=== PATIENT | male | born 1945 | race Two or more races ===

== ENCOUNTER 2020-04-14 09:59 | Outpatient (CLI) | payer MEDICARE ==
[2020-04-17] MEDS ORDERED: OXYC-454 PO (08:00)
== END 2020-04-14 23:59 | disposition home or self-care (01) ==
LOC: LAB 09:59
PROVIDERS: ATTEND Specialist
DX: Z01.812 Encounter for preprocedural laboratory examination (principal); Z11.59 Encounter for screening for other viral diseases
CPT/HCPCS: C9803; U0003

== ENCOUNTER 2020-04-17 05:09 | Inpatient (IN) | payer MEDICARE ==
[~2020-04-17] VITALS: Ht 180.3 cm; Wt 83.9 kg
[2020-04-17 05:20] VITALS: BP 139/91
--- NOTE | 2020-04-17 05:21 | NUR ---
MS RN NOTES PATIENT ARRIVED ON FLOOR AT 0520. PATIENT IS ALERT AND ORIENTED X 4. BREATHING EVEN AND UNLABORED ON ROOM AIR. SHOWS NO SIGNS OF ACUTE RESPIRATORY DISTRESS, NO ACUTE PAIN. IV ON L FOREARM 20G ITS CLEAN DRY AND INTACT. SHOWS NO SIGNS OF INFILTRATION, NO REDNESS. BELONGINGS CHECKLIST COMPLETED, CONSENT SIGNED FOR SURGERY. MRSA SWAB COMPLETED. BED IN LOWEST POSITION, LOCKED, AND CALL LIGHT KEPT WITHIN REACH.
[2020-04-17] MEDS ORDERED: ANESTHESIA TRAY IN PYXIS 1 EA TRAY MC ONE (05:50)
[2020-04-17] MEDS ORDERED: BUPIVACAINE 0.5 % PF 150 MG/30 ML VIAL ONE (05:50)
--- NOTE | 2020-04-17 06:10 | NUR ---
MS RN NOTES PATIENT LEFT FLOOR FOR SURGERY AT 0610.
[2020-04-17] MEDS ORDERED: HYDROMORPHONE INJ 2 MG/ML DISP.SYRIN ONE ×2 (06:30→09:00)
[2020-04-17] MEDS ORDERED: ROCURONIUM BROMIDE 50 MG/5 ML ONE (06:31)
--- NOTE | 2020-04-17 06:34 | NUR ---
MS RN NOTES VTE SCORE OF 3. NO PUMP MACHINE AVAILABLE ON UNIT. CALLED CENTRAL SUPPLY. WILL ENDORSE TO ONCOMING NURSE.
[2020-04-17 06:49] LABS: ALBUMIN 3.4 g/dL (3.4-5.0); BILIRUBIN,TOTAL 0.4 mg/dL (0.2-1.0); POTASSIUM 3.3 mmol/L (3.5-5.1); TOTAL PROTEIN, SERUM 6.2 g/dL (6.4-8.2)
[2020-04-17] MEDS ORDERED: TRANEXAMIC ACID 3,000 MG in SODIUM CHLORIDE IRRIG SOLUTION 70 ML IR ONE (07:00)
[2020-04-17] MEDS ORDERED: diphenhydrAMINE HCL 25 MG CAPSULE PO PRN (08:00)
[2020-04-17] MEDS ORDERED: ATOR20TA PO (08:00)
[2020-04-17] MEDS ORDERED: AMLO5TAB9 PO (08:00)
[2020-04-17] MEDS ORDERED: ONDANSETRON HCL/PF 4 MG/2 ML VIAL IV PRN (08:00)
[2020-04-17] MEDS ORDERED: LOSA25TA27 PO (08:00)
[2020-04-17] MEDS ORDERED: CARV6.252 PO (08:00)
[2020-04-17] MEDS ORDERED: MEMA7CAP2 PO (08:00)
[2020-04-17] MEDS ORDERED: MAG HYDROX/AL HYDROX/SIMETH 30 ML UDC PO PRN (08:00)
[2020-04-17] MEDS ORDERED: ACETAMINOPHEN ES 500 MG TABLET PO PRN (08:00)
[2020-04-17] MEDS ORDERED: OXYC1TAB12 PO (08:00)
[2020-04-17] MEDS ORDERED: CLONIDINE HCL 0.1 MG TABLET PO PRN (08:00)
[2020-04-17] MEDS ORDERED: MAGNESIUM HYDROXIDE 30 ML UDC PO PRN (08:30)
[2020-04-17] MEDS ORDERED: AMLODIPINE BESYLATE 5 MG TABLET PO SCH (09:00)
[2020-04-17] MEDS ORDERED: BISACODYL SUPP (10 MG) 10 MG/SUPP.RECT SUPP.RECT RC PRN (10:00)
[2020-04-17] MEDS: IV D5/0.45 NACL 1,000 ML IV PRN ×2 (10:02→19:06)
[2020-04-17] MEDS: DOCUSATE SODIUM 100 MG CAPSULE PO SCH ×2 (10:03→16:18)
[2020-04-17] MEDS: BETHANECHOL CHLORIDE (25 MG) 25 MG TABLET PO SCH ×4 (10:03→20:51)
[2020-04-17] MEDS: FAMOTIDINE (20 MG) 20 MG TABLET PO SCH ×2 (10:03→20:51)
[2020-04-17] MEDS: HYDROMORPHONE 1 MG/1 ML DISP.SYRIN SQ PRN ×3 (11:14→20:51)
[2020-04-17] MEDS: AMLODIPINE BESYLATE 5 MG TABLET PO SCH (12:11)
[2020-04-17] MEDS: TAMSULOSIN 0.4 MG CAP.SR.24H PO SCH ×2 (12:11→12:15)
[2020-04-17] MEDS ORDERED: POTASSIUM CHLORIDE 20 MEQ TAB.PRT.SR PO ONE (13:00)
[2020-04-17] MEDS: ANCEF 1 GM/50 ML D5W IV SCH ×4 (14:21→22:04)
[2020-04-17 16:00] VITALS: BP 127/88
[2020-04-17] MEDS: HYDROCODONE/APAP 5/325MG TABLET PO PRN (16:19)
[2020-04-17] MEDS: MENTHOL/CETYLPYRD (CEPACOL) 1 LOZ LOZENGE PO PRN ×2 (16:24→20:51)
--- NOTE | 2020-04-17 18:08 | NUR ---
MS ADRIA END OF SHIFT SUMMARY PT ARRIVED TO RM 304-2 FROM OR VIA GURNEY IN STABLE CONDITION. S/P RIGHT SHOULDER REVERSAL TOTAL ARTHROPLASTY. PT IS A/OX4, AFEBRILE. RESPIRATIONS ARE EVEN AND UNLABORED, NOT IN ANY ACUTE DISTRESS NOTED. PAIN MANAGED BY DILAUDID IVP PRN. ABDOMEN IS SOFT AND NONDISTENDED, BOWEL SOUNDS ARE PRESENT IN ALL 4 QUADRANTS UPON AUSCULTATION. +FLATUS, NO BM DURING SHIFT. VOIDS. TOLERATING PO W/ NO C/O N/V. RIGHT SHOULDER INCISION COVERED BY BORDERED MEPILEX WITH ARM IN SLING. OTHERWISE, SKIN CDI. PIV INTACT, INFUSING D5 1/2NS @125ML/HR. ALL NEEDS MET AND RENDERED. SAFETY MEASURES ARE IN PLACE. CALL LIGHT IS LEFT WITHIN REACH. WILL MONITOR AND CONTINUE POC.
--- NOTE | 2020-04-17 19:10 | NUR ---
MS RN NOTES RECEIVED PT IN BED AWAKE AND ABLE TO MAKE NEEDS KNOWN. PT A/O X3. RESPIRATIONS EVEN AND UNLABORED WITH NO S/S OF ACUTE DISTRESS OR SOB NOTED. NO COMPLAINTS OF PAIN AT THIS TIME. SAFETY MEASURES IN PLACE WITH BED IN LOWEST LOCKED POSITION WITH SIDE RAILS UP X2. CALL LIGHT WITHIN REACH. WILL CONTINUE TO MONITOR.
[2020-04-17 20:00] VITALS: BP 114/69
[2020-04-17] MEDS ORDERED: ZOLPIDEM TARTRATE 5 MG TABLET PO PRN (22:00)
[2020-04-17] MEDS: ASPIRIN 325 MG TABLET PO SCH (22:04)
--- NOTE | 2020-04-18 | NUR ---
MS RN NOTES PT IN BED RESTING WITH NO S/S OF ACUTE DISTRESS OR SOB NOTED. WILL CONTINUE TO MONITOR.
[2020-04-18] MEDS: IV D5/0.45 NACL 1,000 ML IV PRN (04:30)
[2020-04-18] MEDS: HYDROCODONE/APAP 5/325MG TABLET PO PRN (06:06)
[2020-04-18] MEDS ORDERED: oxyCODONE IR immediate release 5 MG PO PRN ×2 (07:00)
--- NOTE | 2020-04-18 07:43 | NUR ---
MS RN NOTES PT IN BED AWAKE AND ABLE TO MAKE NEEDS KNOWN. PT A/O X3. RESPIRATIONS EVEN AND UNLABORED WITH NO S/S OF ACUTE DISTRESS OR SOB NOTED THROUGHOUT SHIFT. NO COMPLAINTS OF PAIN AT THIS TIME. SAFETY MEASURES IN PLACE WITH BED IN LOWEST LOCKED POSITION WITH SIDE RAILS UP X2. CALL LIGHT WITHIN REACH. WILL ENDORSE TO ONCOMING NURSE FOR [place].
[2020-04-18 08:31] VITALS: BP 114/77
[2020-04-18] MEDS: DOCUSATE SODIUM 100 MG CAPSULE PO SCH (08:31)
[2020-04-18] MEDS: AMLODIPINE BESYLATE 5 MG TABLET PO SCH (08:31)
[2020-04-18] MEDS: ASPIRIN 325 MG TABLET PO SCH (08:31)
[2020-04-18] MEDS: FAMOTIDINE (20 MG) 20 MG TABLET PO SCH (08:31)
[2020-04-18] MEDS: BETHANECHOL CHLORIDE (25 MG) 25 MG TABLET PO SCH (08:32)
[2020-04-18] MEDS: HYDROMORPHONE 1 MG/1 ML DISP.SYRIN SQ PRN (11:15)
--- NOTE | 2020-04-18 11:59 | NUR ---
MS BOILING HOUSE OILER NOTE PT DISCHARGE TO HOME IN MEDICALLY STABLE CONDITION S/P RIGHT SHOULDER TOTAL REVERSAL ARTHROPLASTY. PT IS A/OX4, AFEBRILE.RESPIRATIONS ARE EVEN AND UNLABORED, NOT IN ANY ACUTE DISTRESS NOTED. RIGHT SHOULDER SLING INTACT, EDUCATED PT ON HOW TO PUT SLING. EDUCATED PT ALSO ON THE USE OF IS,ABLE TO PERFORM RETURN DEMONSTRATION. PT IS AMBULATORY AND CONTINENT. PT WAS SEEN BY DR. FREGOSO, DR MAJOR AND SUSANA WING. EXPLAINED DISCHARGE PAPERWORK TO PT WITH VERBAL AND WRITTEN UNDERSTANDING. ALL BELONGINGS ACCOUNTED FOR AND SENT HOME WITH PT. SKIN CDI. PER JENNIFER WING, TO LEAVE DRESSING TO RIGHT SHOULDER INTACT TILL ORTHO APPT. TIMOTHY OLIVEIRA P/U PT. ACCOMPANIED BY VIA W/C TO PERSONAL VEHICLE IN STABLE CONDITION.
== END 2020-04-18 11:30 | disposition home health service (06) | DRG 483 ==
LOC: DS 05:09 → MED 05:21
PROVIDERS: ADMIT Internal Medicine; ATTEND Internal Medicine
PROC: 0RRJ00Z Replacement of Right Shoulder Joint with Reverse Ball and Socket Synthetic Substitute, Open Approach (ICD-10-PCS; principal; 2020-04-17)
DX: S42.291A Other displaced fracture of upper end of right humerus, initial encounter for closed fracture (principal); M75.121 Complete rotator cuff tear or rupture of right shoulder, not specified as traumatic; E66.9 Obesity, unspecified; I10 Essential (primary) hypertension; E87.6 Hypokalemia; M19.90 Unspecified osteoarthritis, unspecified site; Z68.25 Body mass index [BMI] 25.0-25.9, adult; X58.XXXA Exposure to other specified factors, initial encounter; Y93.89 Activity, other specified; Y92.89 Other specified places as the place of occurrence of the external cause
CPT/HCPCS: 36415; 80053-TC; 86850-TC; 87081-TC; A4217; A4565; C1776; C9803-CS; G0378; J0690; J1170; J1885; J2405; J2704; J3490; J7060; U0003-CS

== ENCOUNTER 2020-04-24 08:40 | Emergency (ER) | payer MEDICARE ==
[~2020-04-24] VITALS: Ht 180.3 cm; Wt 83.9 kg
[~2020-04-24 08:40] MED LIST: AMLO5TAB9 PO; ATOR20TA PO; CARV6.252 PO; LOSA25TA27 PO; MEMA7CAP2 PO; OXYC-454 PO
--- NOTE | 2020-04-24 08:45 | NUR ---
CAME IN FOR TRIP AND FALL, DENIES PAIN. BLEEDING FROM R SHOULDER SURGERY SITE. TO ER BED 9, HOOKED TO BP CUFF AND POX, VSS, CHANGED TO HOSP GOWN, PATIENT AAO x 4, BREATHING EVEN AND UNLABORED, AWAITING MD DELEON.
--- NOTE | 2020-04-24 08:54 | NUR ---
DR HAWK AT BEDSIDE
[2020-04-24] MEDS ORDERED: LOSA50TA39 PO (09:02)
--- NOTE | 2020-04-24 09:08 | NUR ---
Patient discharged to home in stable condition. Written and verbal after care instructions given. Patient verbalizes understanding of instruction.
[2020-04-24 09:09] VITALS: BP 128/90
== END 2020-04-24 09:09 | disposition home or self-care (01) ==
LOC: ER 08:40
DX: S49.81XA Other specified injuries of right shoulder and upper arm, initial encounter (principal); I10 Essential (primary) hypertension; Z98.890 Other specified postprocedural states; Z79.899 Other long term (current) drug therapy; W01.0XXA Fall on same level from slipping, tripping and stumbling without subsequent striking against object, initial encounter; Y93.89 Activity, other specified; Y92.89 Other specified places as the place of occurrence of the external cause; Y99.8 Other external cause status
CPT/HCPCS: 99281; A6403

== ENCOUNTER 2020-04-26 19:41 | Emergency (ER) | payer MEDICARE ==
[~2020-04-26] VITALS: Ht 180.3 cm; Wt 83.9 kg
[~2020-04-26 19:41] MED LIST changes: -LOSA25TA27 PO; +LOSA50TA39 PO; -OXYC-454 PO; +OXYC1TAB12 PO
--- NOTE | 2020-04-26 19:58 | NUR ---
PATIENT'S RADIAL PULSE IS STRONG AND EQUAL BILATERALLY. ABLE TO WRIGGLE FINGERS. SWELLING NOTED ON THE RIGHT ARM. LIMITED RANGE OF MOTION ON RIGHT SHOULDER.
--- NOTE | 2020-04-26 19:58 | NUR ---
PATIENT CAME TO ER BED 10 C/O RIGHT SHOULDER BLEEDING. PATIENT STATES THAT HE WAS AT [facility] ON 04/17/2020 FOR A RIGHT SHOULDER REPLACEMENT. PATIENT STATES THAT HE FEELS SLIGHTLY DIZZY. CURRENTLY NO ACTIVE BLEEDING. PATIENT IS AAOX4. NO SOB. BREATHING EVENLY AND UNLABORED ON ROOM AIR.
[2020-04-26 20:32] LABS: BASOPHILS # (AUTO) 0.1 /CMM (0.0-0.2); BASOPHILS % (AUTO) 1.3 % (0.0-2.0); EOSINOPHILS % (AUTO) 6.9 % (0.0-6.0); HEMATOCRIT 34 % (39-51); HEMOGLOBIN 11.4 g/dL (13.5-17.5); LYMPHOCYTES # (AUTO) 1.5 /CMM (0.8-4.8); LYMPHOCYTES % (AUTO) 22.6 % (20.0-44.0); MEAN CORPUSCULAR HGB CONC 34 g/dl (31.0-36.0); MEAN CORPUSCULAR VOLUME 92 fL (80-96); MONOCYTES # (AUTO) 0.6 /CMM (0.1-1.30); MONOCYTES % (AUTO) 8.5 % (2.0-12.0); NEUTROPHILS # (AUTO) 4.1 /CMM (1.8-8.9); NEUTROPHILS % (AUTO) 60.7 % (43.0-81.0); PLATELET COUNT (AUTO) 473 /CMM (150-450); RED BLOOD CELL COUNT(AUTO) 3.68 MIL/uL (4.5-6.0); WHITE BLOOD COUNT (AUTO) 6.8 K/uL (4.3-11.0)
[2020-04-26 20:43] LABS: CALCIUM, SERUM 9.1 mg/dL (8.5-10.1); CARBON DIOXIDE 31 mmol/L (21-32); CHLORIDE 98 mmol/L (98-107); CREATININE 0.9 mg/dL (0.6-1.3); GLUCOSE 105 mg/dL (74-106); POTASSIUM 3.4 mmol/L (3.5-5.1); SODIUM SERUM 135 mmol/L (136-145); UREA NITROGEN, BLOOD 9 mg/dL (7-18)
[2020-04-26] MEDS ORDERED: LIDOCAINE 1%-EPI 1:100,000 20 ML VIAL ONE (21:12)
--- NOTE | 2020-04-26 21:12 | NUR ---
AT BEDSIDE FOR RE-EVALUATION
--- NOTE | 2020-04-26 21:18 | NUR ---
US AT BEDSIDE FOR US PROCEDURE.
[2020-04-26] MEDS ORDERED: NEOMY SULF/BACITRAC ZN/POLY 15 GM TUBE TP SCH (21:30)
[2020-04-26 22:18] VITALS: BP 122/78
--- NOTE | 2020-04-26 22:18 | NUR ---
Patient discharged to home in stable condition. Written and verbal after care instructions given. Patient verbalizes understanding of instruction.
== END 2020-04-26 22:19 | disposition home or self-care (01) ==
LOC: ER 19:42
DX: S41.011A Laceration without foreign body of right shoulder, initial encounter (principal); L76.22 Postprocedural hemorrhage of skin and subcutaneous tissue following other procedure; R22.31 Localized swelling, mass and lump, right upper limb; I10 Essential (primary) hypertension; Z98.890 Other specified postprocedural states; Z79.899 Other long term (current) drug therapy; X58.XXXA Exposure to other specified factors, initial encounter; Y93.89 Activity, other specified; Y92.89 Other specified places as the place of occurrence of the external cause; Y99.8 Other external cause status
CPT/HCPCS: 12020; 36415; 80048; 85025; 85610; 85730; 93971; 99284; J3490